=== PATIENT | male | born 1935 | race African-American/Black ===

== ENCOUNTER 2020-01-27 13:02 | Emergency (ER) | payer MEDICARE, MEDICAID ==
[~2020-01-27] VITALS: Ht 182.9 cm; Wt 84.0 kg
[~2020-01-27 13:02] MED LIST: ALBU6.7H11 INH; AMLO10TA80 PO; AZIT500T2 MT; COR3 PO
[2020-01-27 13:15] VITALS: BP 152/78
[2020-01-27] MEDS ORDERED: SILVER SULFADIAZINE 1% CREAM 50GM TOP STA (14:57)
== END 2020-01-27 16:00 | disposition home or self-care (01) ==
LOC: ER 13:02
DX: T22.112A Burn of first degree of left forearm, initial encounter (principal); X12.XXXA Contact with other hot fluids, initial encounter; Y93.89 Activity, other specified; Y92.9 Unspecified place or not applicable; I25.2 Old myocardial infarction; Z86.73 Personal history of transient ischemic attack (TIA), and cerebral infarction without residual deficits
CPT/HCPCS: 93005; 99283